=== PATIENT | male | born 1995 | race Caucasian/White ===

== ENCOUNTER 2018-04-14 00:04 | Emergency (ER) | payer OTHER ==
[~2018-04-14] VITALS: Ht 182.9 cm; Wt 77.7 kg
[2018-04-14 00:32] VITALS: Ht 182.9 cm; Wt 77.7 kg
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
[2018-04-14] MEDS ORDERED: AMOX1TAB10 PO (03:25)
[2018-04-14] MEDS ORDERED: IBUP-1542 PO (03:25)
[2018-04-14 04:15] VITALS: BP 118/63; PULSE 81; RESP 18
== END 2018-04-14 04:17 | disposition home or self-care (01) ==
LOC: FTE 00:04
DX: S69.91XA Unspecified injury of right wrist, hand and finger(s), initial encounter (principal); Y04.1XXA Assault by human bite, initial encounter
CPT/HCPCS: 73130; Z7502